=== PATIENT | male | born 1945 | race Hispanic/Latino ===

== ENCOUNTER 2022-05-04 09:39 | Observation (INO) | payer OTHER ==
[~2022-05-04] VITALS: Ht 180.3 cm; Wt 99.2 kg
[~2022-05-04 09:39] MED LIST: ABAC1TAB15 PO; LISI2.5T13 PO; METF-446 PO; SIMV-43 PO; TAMS0.4C32 PO
[2022-05-04 10:30] VITALS: BP 139/79
[2022-05-04] MEDS ORDERED: TEMAZEPAM 15 MG CAPSULE PO PRN (11:00)
[2022-05-04] MEDS ORDERED: MORPHINE 2 MG SYG IVP PRN (11:00)
[2022-05-04] MEDS ORDERED: CLONIDINE HCL 0.1 MG TABLET PO PRN (11:00)
[2022-05-04] MEDS ORDERED: LACTULOSE 20 GM/30 ML UDCUP PO PRN (11:00)
[2022-05-04] MEDS ORDERED: ACETAMINOPHEN 325 MG TAB PO PRN (11:00)
[2022-05-04] MEDS ORDERED: ACETAMINOPHEN 650 MG SUPPOSITORY RC PRN (11:00)
[2022-05-04] MEDS: LACTATED RINGERS 1000ML 1,000 ML IV SCH ×2 (11:00→21:47)
[2022-05-04 11:24] LABS: BASOPHILS % (AUTO) 0.7 % (0.0-5.0); EOSINOPHILS % (AUTO) 5.5 % (0.0-8.0); HEMATOCRIT 33.4 % (42-54); LYMPHOCYTES % (AUTO) 16.9 % (21.0-51.0); MEAN CORPUSCULAR HEMOGLOBIN 30.5 pg (27.0-33.0); NEUTROPHILS % (AUTO) 66.6 % (40.0-77.0); PLATELET COUNT (AUTO) 198 K/uL (130-400); RED BLOOD CELL COUNT(AUTO) 3.84 MIL/uL (4.50-6.20); RED CELL DISTRIBUTION WIDTH 13.4 % (11.0-15.5); WHITE BLOOD COUNT (AUTO) 6.9 K/uL (4.8-10.8)
[2022-05-04] MEDS: INSULIN HUMULIN R 100 UNIT/ML 3ML SQ SCH ×3 (11:30→21:00)
[2022-05-04 11:35] LABS: ALBUMIN 3.6 g/dL (3.5-5.0); CREATININE 3.1 mg/dL (0.5-1.5); POTASSIUM 4.9 mmol/L (3.5-5.1); TOTAL PROTEIN, SERUM 7.4 g/dL (6.0-8.3)
[2022-05-04 13:18] LABS: APPEARANCE,URINE CLEAR (CLEAR); BILIRUBIN,URINE NEGATIVE (NEGATIVE); COLOR,URINE LIGHT-YELLOW (YELLOW); GLUCOSE, URINE (UA) NEGATIVE (NEGATIVE); KETONES,URINE NEGATIVE (NEGATIVE); LEUKOCYTE ESTERASE ,URINE 250 Leu/uL (NEGATIVE); NITRATE,URINE NEGATIVE (NEGATIVE); OCCULT BLOOD,URINE NEGATIVE (NEGATIVE); PH,URINE 5.5 (5.0-8.0); PROTEIN,URINE 20 mg/dL (NEGATIVE); UROBILINOGEN,URINE 0.2 mg/dL (0.2-1.0)
[2022-05-04 13:28] LABS: BACTERIA,URINE MANY /HPF (None Seen); SQUAMOUS EPITHELIAL CELL,UR RARE /HPF (0-2); WBC,URINE 51-100 /HPF (0-1)
[2022-05-04] MEDS: MEROPENEM 1 GM VIAL IVP SCH (14:00)
[2022-05-04 15:20] VITALS: BP 125/71
[2022-05-04] MEDS ORDERED: RENAL DOSE IV PRN (18:30)
[2022-05-04 18:42] LABS: INR 0.96 (0.85-1.15); PROTHROMBIN TIME 10.5 SEC (9.6-11.6)
[2022-05-04 18:44] LABS: PARTIAL THROMBOPLASTIN TIME 27.5 SEC (26.3-35.5)
[2022-05-04] MEDS ORDERED: HYDR-4153 PO (19:51)
[2022-05-04] MEDS ORDERED: FERR-72 PO (19:51)
[2022-05-04] MEDS ORDERED: CHOL500045 PO (19:51)
[2022-05-04] MEDS ORDERED: SODI650T PO (19:51)
[2022-05-04] MEDS ORDERED: TRAZ-187 PO (19:51)
[2022-05-04] MEDS ORDERED: GLIP5TAB11 PO (19:51)
[2022-05-04] MEDS ORDERED: AMLO-257 PO (19:51)
[2022-05-04] MEDS ORDERED: LAMI10SO PO ×2 (19:57)
[2022-05-04 20:18] VITALS: BP 137/87
[2022-05-04] MEDS: 0.9%NACL 10ML VIAL IV SCH (21:47)
[2022-05-05 00:22] VITALS: BP 128/69
[2022-05-05] MEDS: MEROPENEM 1 GM VIAL IVP SCH (02:41)
[2022-05-05 03:20] VITALS: BP 113/72
[2022-05-05 04:05] LABS: BASOPHILS % (AUTO) 0.6 % (0.0-5.0); EOSINOPHILS % (AUTO) 7.2 % (0.0-8.0); HEMATOCRIT 30.6 % (42-54); LYMPHOCYTES % (AUTO) 16.2 % (21.0-51.0); MEAN CORPUSCULAR HEMOGLOBIN 30.3 pg (27.0-33.0); MEAN CORPUSCULAR VOLUME 86.7 fL (79-99); MONOCYTES % (AUTO) 10.4 % (3.0-13.0); NEUTROPHILS % (AUTO) 64.5 % (40.0-77.0); PLATELET COUNT (AUTO) 180 K/uL (130-400); RED BLOOD CELL COUNT(AUTO) 3.53 MIL/uL (4.50-6.20); RED CELL DISTRIBUTION WIDTH 13.3 % (11.0-15.5); WHITE BLOOD COUNT (AUTO) 6.7 K/uL (4.8-10.8)
[2022-05-05 04:32] LABS: MAGNESIUM 1.8 mg/dL (1.80-2.40); PHOSPHORUS 4.5 mg/dL (2.5-4.9); POTASSIUM 4.2 mmol/L (3.5-5.1)
[2022-05-05] MEDS: INSULIN HUMULIN R 100 UNIT/ML 3ML SQ SCH ×2 (06:34→10:53)
[2022-05-05 08:00] VITALS: BP 133/78
[2022-05-05] MEDS ORDERED: Vitamin B Complex/Vit C/Folic Acid PO SCH (09:00)
[2022-05-05] MEDS ORDERED: ENOXAPARIN SODIUM 40 MG/0.4 ML SYRINGE SQ SCH (09:00)
[2022-05-05] MEDS ORDERED: FAMOTIDINE 20MG TAB PO SCH (09:00)
[2022-05-05] MEDS: 0.9%NACL 10ML VIAL IV SCH (09:00)
[2022-05-05] MEDS: LACTATED RINGERS 1000ML 1,000 ML IV SCH (09:14)
[2022-05-05 11:32] VITALS: BP 128/65
[2022-05-05] MEDS ORDERED: SODIUM BICARBONATE 650 MG TAB PO SCH (12:00)
[2022-05-05] MEDS ORDERED: TRAZODONE HCL 100 MG TABLET PO SCH (21:00)
[2022-05-05] MEDS ORDERED: AMLODIPINE 5 MG TAB PO SCH (21:00)
[2022-05-05] MEDS ORDERED: LAMIVUDI PO SCH (21:00)
[2022-05-05] MEDS ORDERED: GLIPIZIDE 5 MG TABLET PO SCH (21:00)
[2022-05-05] MEDS ORDERED: HYDRALAZINE 25MG TABLET PO SCH (21:00)
[2022-05-05] MEDS ORDERED: ABACAVIR PO SCH (21:00)
[2022-05-05] MEDS ORDERED: LAMIVUDINE 10 MG/ML PO SCH (21:00)
[2022-05-05] MEDS ORDERED: DOLUTEGRAVIR PO SCH (21:00)
[2022-05-06] MEDS ORDERED: ***HM***(Cholecalciferol (Vitamin D3) (Vitamin D3) 125 MCG) PO SCH (09:00)
[2022-05-07] MEDS ORDERED: FERROUS SULFATE 325 MG TABLET.DR PO SCH (09:00)
== END 2022-05-05 14:30 | disposition home or self-care (01) ==
LOC: EDH 09:39 → DIRECT 10:05 → INTOOBSV 10:05 → 4AH 10:06 → EDH 10:23 → 4DH 05-05 13:52 → 4AH 05-05 13:53
PROVIDERS: ADMIT Internal Medicine; ATTEND Internal Medicine
DX: N39.0 Urinary tract infection, site not specified (principal); N40.1 Benign prostatic hyperplasia with lower urinary tract symptoms; I12.9 Hypertensive chronic kidney disease with stage 1 through stage 4 chronic kidney disease, or unspecified chronic kidney disease; N18.4 Chronic kidney disease, stage 4 (severe); E11.22 Type 2 diabetes mellitus with diabetic chronic kidney disease; D63.1 Anemia in chronic kidney disease; B96.20 Unspecified Escherichia coli [E. coli] as the cause of diseases classified elsewhere; B96.1 Klebsiella pneumoniae [K. pneumoniae] as the cause of diseases classified elsewhere; D64.9 Anemia, unspecified; E66.9 Obesity, unspecified; E78.5 Hyperlipidemia, unspecified; E87.1 Hypo-osmolality and hyponatremia; D50.0 Iron deficiency anemia secondary to blood loss (chronic); E11.21 Type 2 diabetes mellitus with diabetic nephropathy; M19.90 Unspecified osteoarthritis, unspecified site; N13.8 Other obstructive and reflux uropathy; F32.9 Major depressive disorder, single episode, unspecified; Z16.24 Resistance to multiple antibiotics; Z16.12 Extended spectrum beta lactamase (ESBL) resistance; Z21 Asymptomatic human immunodeficiency virus [HIV] infection status; Z96.653 Presence of artificial knee joint, bilateral; Z79.899 Other long term (current) drug therapy; Z98.890 Other specified postprocedural states; Z79.4 Long term (current) use of insulin; Z68.30 Body mass index [BMI] 30.0-30.9, adult
CPT/HCPCS: 96361 ×2; 80053; 85025 ×2; 85610; 85730; 87040 ×2; 87077; 87088; 87186; 82948 ×3; 86360; 81001; 36415 ×2; 71045; 74176; 96374; 96372; 83735; 84100; 80048; 83605; 84145; C1750; G0378 ×21; J7120 ×2; J1650; J2185